=== PATIENT | female | born 1965 | race Two or more races ===

== ENCOUNTER → 2019-05-15 | Emergency (ER) | payer MEDICAID ==
[~2019-05-15] VITALS: Ht 152.4 cm; Wt 65.8 kg
[~2019-05-15] MED LIST: ALBUTEROL SULF8.5 GM INH; NKM; PREDNISONE20 MG ORAL
--- NOTE | 2019-05-15 10:04 | Emergency Room Report ---
History of Present Illness General Chief Complaint: Dyspnea/Respdistress Source: Patient Present Illness HPI 53-year-old female history of 30 pack years presents with shortness of breath that has been ongoing for the past 2 months, patient denies any aggravating or alleviating factors symptoms have been constant, however just feels short of breath she denies any cough congestion, abdominal pain no chest pain. She states the severity is moderate constant in nature, characterization of shortness of breath, no aggravating or alleviating factors per patient. Allergies: Coded Allergies: No Known Allergies (Unverified , 03/08/16) Patient History Past Medical History: see triage record Social History: Reports: smoking, alcohol use - Social Now: No Reviewed Nursing Documentation: PMH: Agreed; PSxH: Agreed Nursing Documentation-PMH Past Medical History: No History, Except For Review of Systems All Other Systems: negative except mentioned in HPI Physical Exam Vital Signs Date Time Temp Pulse Resp B/P (MAP) Pulse Ox O2 Delivery O2 Flow Rate FiO2 05/15/19 09:44 98.4 54 20 181/68 (105) 97 Room Air Sp02 EP Interpretation: reviewed, normal General Appearance: well appearing, no apparent distress, alert Head: normocephalic, atraumatic Eyes: bilateral eye PERRL, bilateral eye EOMI ENT: uvula midline, moist mucus membranes Neck: supple, thyroid normal, supple/symm/no masses Respiratory: no respiratory distress, no retraction, no accessory muscle use, wheezing - Mild Cardiovascular #1: normal peripheral pulses, regular rate, rhythm, no edema, no gallop, no murmur Gastrointestinal: non tender, soft, no guarding, no rebound Musculoskeletal: normal inspection Neurologic: alert, oriented x3 Psychiatric: mood/affect normal Skin: no rash, warm/dry Medical Decision Making Diagnostic Impression: Primary Impression: Dyspnea Qualified Codes: R06.02 - Shortness of breath Additional Impression: COPD (chronic obstructive pulmonary disease) Qualified Codes: J44.1 - Chronic obstructive pulmonary disease with (acute) exacerbation ER Course Patient with most likely a COPD exacerbation, reevaluated patient after breathing treatment steroids, lungs opened up wheezing completely resolved, patient feels better, work-up has thus far been negative, no evidence of pneumonia no evidence of ACS, patient also with vague symptoms of burning pain in her legs, patient may have a component of peripheral vascular disease, counseled patient to follow-up with PCP for ankle-brachial index, also counseled patient to follow-up with pulmonary doctor Disposition home with return precautions EKG Diagnostic Results EKG Time: 10:04 EP Interpretation: Sinus bradycardia, rate 51, QTc 429, no acute ST elevations , left axis dev Rate: bradycardiac Rhythm: other - sinus bradycardia ST Segments: no acute changes Rhythm Strip Diag. Results Rhythm Strip Time: 10:10 EP Interpretation: yes Rate: 51 Rhythm: no PVC's, no ectopy, other - sinus bradycardia Chest X-Ray Diagnostic Results Chest X-Ray Diagnostic Results : Chest X-Ray Ordered: Yes # of Views/Limited/Complete: 1 View Indication: Shortness of Breath EP Interpretation: Yes Interpretation: no consolidation, no effusion, no pneumothorax, no acute cardiopulmonary disease Impression: No acute disease Electronically Signed by: Vasquez Hinojosa MD Last Vital Signs Date Time Temp Pulse Resp B/P (MAP) Pulse Ox O2 Delivery O2 Flow Rate FiO2 05/15/19 09:44 98.4 54 20 181/68 (105) 97 Room Air Disposition: HOME, SELF-CARE Condition: Stable Scripts Prednisone* (PREDNISONE*) 20 Mg Tablet 40 MG ORAL DAILY for 4 Days, #8 TAB Prov: Vasquez Hinojosa MD 05/15/19 Albuterol Sulfate* (ALBUTEROL SULFATE MDI*) 8.5 Gm Hfa.aer.ad 2 PUFF INH Q4H PRN for Shortness of Breath, #1 EA 0 Refills Prov: Vasquez Hinojosa MD 05/15/19 Referrals: [facility] Patient Instructions: Ankle-Brachial Index Test, Chronic Obstructive Pulmonary Disease Exacerbation, Intermittent Claudication Additional Instructions: The patient was provided with discharge instructions, notified to follow-up with a primary care doctor and or specialist in the next 24-48 hours, and to return to the ED if they have worsening of their symptoms. Please note that this report is being documented using [employer] technology. This can lead to erroneous entry secondary to incorrect interpretation by the dictating instrument. Vasquez Hinojosa MD May 15, 2019 10:04
[2019-05-15 10:07] VITALS: BP 181/68
--- NOTE | 2019-05-15 10:07 | NUR ---
ED Nurse Note: pt walked in due to shortness of breath started couple of months ago as verbalized, and lower and leg pain denies trauma. pt vs within normal limit. pt able to ambulate and answer all questions without difficulty breathing. pt bp is elevated, 180/61, denies hx of htn, denies medication. pt is aox4, pt is seen by ermd. will continue to monitor.
--- NOTE | 2019-05-15 10:09 | NUR ---
ED Nurse Note: xray at the bedside
--- NOTE | 2019-05-15 10:10 | NUR ---
ED Nurse Note: pt able to give urine sample and blood drawn and was sent to lab. ivf started and pt medicated as ordered. pt able to tolerate. will continue to monitor.
--- NOTE | 2019-05-15 10:12 | NUR ---
ED Nurse Note: RT on bedside giving nebulization.
[2019-05-15] MEDS: Albuterol ud Inhalation HHN SCH ×3 (10:14→10:23)
[2019-05-15] MEDS: Ipratropium 0.02% Inh Soln 2.5ml UD HHN SCH ×3 (10:14→10:22)
[2019-05-15 10:32] LABS: APPEARANCE,URINE CLEAR; BILIRUBIN, URINE NEGATIVE (NEGATIVE); COLOR,URINE PALE YELLOW; GLUCOSE, URINE (UA) NEGATIVE (NEGATIVE); KETONES,URINE NEGATIVE (NEGATIVE); LEUKOCYTE ESTERASE ,URINE 1+ (NEGATIVE); NITRITE,URINE NEGATIVE (NEGATIVE); PH,URINE 7 (4.5-8.0); PROTEIN,URINE NEGATIVE (NEGATIVE); UROBILINOGEN,URINE NORMAL MG/DL (0.0-1.0)
[2019-05-15 10:38] LABS: ANION GAP 8 mmol/L (5-15); BLOOD UREA NITROGEN 14 mg/dL (7-18); CALCIUM 8.9 MG/DL (8.5-10.1); CARBON DIOXIDE 26 MMOL/L (21-32); CHLORIDE 108 MMOL/L (98-107); CREATININE 0.7 MG/DL (0.55-1.30); POTASSIUM 3.7 MMOL/L (3.5-5.1); SODIUM 142 MMOL/L (136-145)
[2019-05-15 10:43] LABS: BASOPHILS % (AUTO) 1.4 % (0.0-2.0); EOSINOPHILS % (AUTO) 3.1 % (0.0-3.0); HEMATOCRIT 45.9 % (37.0-47.0); HEMOGLOBIN 16.1 G/DL (12.0-16.0); LYMPHOCYTES % (AUTO) 34.3 % (20.0-45.0); MEAN CORPUSCULAR VOLUME 91 FL (80-99); MONOCYTES % (AUTO) 8.2 % (1.0-10.0); PLATELET COUNT 255 K/UL (150-450); RED BLOOD COUNT 5.05 M/UL (4.20-5.40); RED CELL DISTRIBUTION WIDTH 11.7 % (11.6-14.8); WHITE BLOOD COUNT 8.9 K/UL (4.8-10.8)
[2019-05-15 10:51] LABS: ALANINE AMINOTRANSFERASE 35 U/L (12-78); ALBUMIN 3.4 G/DL (3.4-5.0); ALKALINE PHOSPHATASE 141 U/L (46-116); ASPARTATE AMINO TRANSFERASE 22 U/L (15-37); BILIRUBIN,TOTAL 0.4 MG/DL (0.2-1.0); CKMB 1.1 NG/ML (0.0-3.6); CREATINE KINASE 65 U/L (26-308)
[2019-05-15 11:34] VITALS: BP 151/59
--- NOTE | 2019-05-15 11:34 | NUR ---
ER DISCHARGE NOTE: Patient is cleared to be discharged per ERMD, pt is aox4, on room air, with stable vital signs. pt was given dc and prescription instructions, pt was able to verbalize understanding, pt id band and iv site removed without complications. pt is able to ambulate with steady gait. pt took all belongings.
--- NOTE | 2019-05-15 11:46 | Diagnostic Imaging Report ---
Indication: Shortness of breath Technique: One view of the chest Comparison: none Findings: Lungs and pleural spaces are clear. Heart size is normal. Impression: No acute process
--- NOTE | 2019-05-16 11:06 | Cardiology Report ---
APPROVED REPORT EKG Measurement Heart [id number] TN [id number] [id number]-92 [id number] Sinus bradycardia Nonspecific ST abnormality Abnormal ECG
== END | disposition home or self-care (01) ==
LOC: EMR 10:14
DX: R06.02 Shortness of breath (principal); J44.1 Chronic obstructive pulmonary disease with (acute) exacerbation; F17.200 Nicotine dependence, unspecified, uncomplicated
CPT/HCPCS: 36415; 71045; 80053; 80307; 81003; 82550; 82553; 83690; 83880; 84439; 84443; 84481; 84484; 85025; 86850; 86900; 86901; 93005; 94644; 94664; 96360; 99284; J7512